=== PATIENT | female | born 1940 | race African-American/Black ===

== ENCOUNTER → 2016-07-26 | Outpatient (CLI) | payer MEDICARE, OTHER ==
[~2016-07-26] MED LIST: AMLODIPINE BESYL5 MG PO; ASPIRIN81 M1 PO; ASPIRIN81 M2 PO; ASPIRIN81 MG PO; ATORVASTATIN CA10 MG PO; CALCIUM 1,2001 EACH PO; CALCIUM 600 + D1 TAB PO; GLUCOPHAGE500 MG PO; MICARDIS HCT PO; NAMZARIC 28 MG1 EACH PO; VITAMIN D50000 UNIT PO; VYTORIN 10-20 M1 TAB PO
--- NOTE | ~2016-07-26 | MY11 ---
[facility] A Service of [facility] RADIOLOGY TEXT RESULTS PATIENT: ERICA RAPHAEL LOCATION: [facility] : 40 UNIT #: [id number] AGE: [address]: Jordi Calvo MD SEX: F ORDER DR: [id number] [place] [id number] MR#: [id number] #: [id number] NAME: ERICA RAPHAEL : 1940 SEX: F STUDY DATE/TIME: 07/26/2016 14:38 UNIT: [facility] ROOM: STUDY DESCRIPTION: MY Mammogram Screening Dig [place] Attending Physician: Jordi Calvo M.D. Referring Physician: Jordi Calvo M.D. Ordering Physician: Jordi Calvo M.D. Primary Care Physician: Jordi Calvo M.D. MEDICAL IMAGING REPORT This report is preliminary unless electronic signature is present. EXAM Digital screening mammogram, 07/26/2016. HISTORY 75-year-old woman; positive family history, paternal aunt. Previous right breast biopsy. Numerous moles and keratoses. COMPARISONS Mammograms date to 02/02/2008, with most recent screening comparison 06/05/2015. FINDINGS Digital imaging of each breast was completed utilizing standard craniocaudal and mediolateral-oblique projections. Review and interpretation of digital mammograms include a second review in conjunction with FDA-approved CAD device. There is an overall increase in the parenchymal presentation bilaterally with a generalized fibronodular pattern in each breast. There are no breast masses and I see no asymmetry in the parenchymal presentation. There are no suspicious microcalcifications and I see no architectural disturbance. IMPRESSION Benign mammogram. One-year followup recommended. Patients over the age of 40 are entered into a reminder system with target due date for the next mammogram. A result letter will also be sent to the patient. BIRADS: 2 Benign finding [facility] A Service of [facility] RADIOLOGY TEXT RESULTS PATIENT: ERICA RAPHAEL LOCATION: [facility] : 40 UNIT #: [id number] AGE: [address]: Jordi Calvo MD SEX: F ORDER DR: Dictated by... Gentry Brennan M.D. THIS IS AN ELECTRONICALLY VERIFIED REPORT Gentry Brennan M.D. at 07/29/2016 8:01 AM PARISH/na TD: 07/26/2016 16:27 JOB #: [id number] MEDICAL IMAGING REPORT Page 1 of 1
== END | disposition home or self-care (01) ==
LOC: SMAM 14:03
DX: Z12.31 Encounter for screening mammogram for malignant neoplasm of breast (principal); Z80.3 Family history of malignant neoplasm of breast; Z98.890 Other specified postprocedural states
CPT/HCPCS: G0202